=== PATIENT | female | born 1955 | race Hispanic/Latino ===

== ENCOUNTER → 2025-04-28 | Day surgery (SDC) | payer MEDICARE ==
[2025-04-23 16:00] LABS: BASOPHILS % 0.4 % (0.0-1.0); EOSINOPHILS % 0.4 % (0.0-6.0); LYMPHOCYTES % 18.6 % (18.0-39.1); MONOCYTES % 10.3 % (4.4-11.3); NEUTROPHILS % 70.1 % (38.7-80.0); RED CELL DISTRIBUTION WIDTH 15.8 % (11.7-14.4)
[~2025-04-28] MED LIST: ACETAMINOPHEN 1000 MG/100 ML 100 ML IV ONE; ACETAMINOPHEN 1000 MG/100 ML IV PRN; ALENDRONATE SOD70 MG PO; ARAVA20 MG PO; ASPIRIN 325 MG TAB PO SCH; CALCIUM500 MG PO; CELECOXIB 100 MG CAP PO SCH; DEXAMETHASONE SOD PHOS INJ 4 MG/ML SDV ONE; DIPHENHYDRAMINE HCL INJ 50 MG/ML VIAL IV PRN; DOCUSATE SODIUM 100 MG CAP PO PRN; FENTANYL CITRATE/PF 100MCG/2 ML INJ ONE; FERROUS SULFAT325 MG PO; FOLIC ACID0.4 MG PO; HYDROCODONE/APAP 5MG-325MG TAB PO PRN; HYDROCODONE/APAP 7.5MG-325MG 1 EA TAB PO PRN; KETOROLAC TROMETHAMINE 30 MG/ML VIAL ONE; LIDOCAINE HCL 2% LOCAL INJ 5 ML SDV VIAL INJ ONE; MAGNESIUM OXID400 MG PO; ONDANSETRON HCL INJ 2MG/ML 2ML 2 MG/ML VIAL IV PRN; ONDANSETRON HCL INJ 2MG/ML 2ML 2 MG/ML VIAL ONE; PREDNISONE5 MG PO; PROPOFOL IV EMULSION 10 MG/ML 20 ML VIAL ONE; ROPIVACAINE 246.25 MG, EPINEPHRINE HCL 1:1000 1ML 0.5 MG, CLONIDINE HCL 0.08 MG, KETORO... INJ ONE; ROPIVACAINE/EPI/CLONIDINE/KET 50 ML SYRINGE INJ ONE; SEVOFLURANE INHAL SOLN 250 ML PEN BTL ONE; SODIUM CHLORIDE 0.9% 1000ML 1,000 ML IV SCH; ULTRAM 50MG50 MG PO; VIT C PO; VIT D PO; VIT K2 PO
[2025-04-28] MEDS: LACTATED RINGER'S 1,000 ML ONE (08:50)
[2025-04-28] MEDS: DEXAMETHASONE SOD PHOS 10 MG/1 ML VIAL ONE (08:50)
[2025-04-28] MEDS: CELECOXIB 200 MG CAP ONE (08:50)
[2025-04-28] MEDS: GABAPENTIN 300 MG CAP ONE (08:51)
[2025-04-28] MEDS: CEFAZOLIN SODIUM 2 GM ONE (08:52)
[2025-04-28 10:24] VITALS: TEMP 97
[2025-04-28] MEDS: FENTANYL CITRATE/PF 100MCG/2 ML INJ IV ONE ×2 (10:41→10:46)
[2025-04-28] MEDS: HYDROCODONE/APAP 7.5MG-325MG 1 EA TAB PO ONE (11:40)
[2025-04-28 12:05] VITALS: BP 131/88; PULSE 70; RESP 16; O2SAT 97
[2025-04-28] MEDS: ONDANSETRON HCL INJ 2MG/ML 2ML 2 MG/ML VIAL IV ONE (12:27)
== END | disposition home or self-care (01) ==
LOC: OR 06:56
PROVIDERS: ATTEND Specialist
DX: M06.852 Other specified rheumatoid arthritis, left hip (principal); M81.0 Age-related osteoporosis without current pathological fracture; Z01.810 Encounter for preprocedural cardiovascular examination; Z01.812 Encounter for preprocedural laboratory examination; Z01.818 Encounter for other preprocedural examination; Z79.899 Other long term (current) drug therapy
CPT/HCPCS: 27130; 36415; 71046; 72170; 85025; 86850; 86900; 93005; 97116; 97161; 97530; C1713 ×2; C1776 ×2; J0131; J0169; J1100 ×2; J1885; J2003; J2405; J2704; J2795; J3010; J7121